=== PATIENT | male | born 1965 | race Caucasian/White ===

== ENCOUNTER 2016-11-18 08:25 | Outpatient (CLI) | payer OTHER ==
[2016-11-18 14:13] LABS: HEMOGLOBIN A1C 1.04 g/dL
[2016-11-18 14:29] LABS: CHOL/HDL RATIO 2.6 (<5.0); CHOLESTEROL 179 mg/dL; HDL CHOLESTEROL 69 mg/dL; LDL/HDL RATIO 1.5 (<3.6); TRIGLYCERIDES 41 mg/dL; VLDL CHOLESTEROL 8 mg/dL
== END 2016-11-18 08:26 | disposition home or self-care (01) ==
LOC: LAB.N 08:25
PROVIDERS: ATTEND Nurse Practitioner Primary Care
DX: E78.5 Hyperlipidemia, unspecified (principal); E11.9 Type 2 diabetes mellitus without complications; E55.9 Vitamin D deficiency, unspecified; Z79.899 Other long term (current) drug therapy
CPT/HCPCS: 36415; 80061; 82306; 83036; 84450; 84460

== ENCOUNTER 2016-11-24 22:09 | Outpatient (CLI) | payer OTHER | END 2016-11-24 22:10 | disposition EMS.NT | DX: R40.20 Unspecified coma (principal); E16.2 Hypoglycemia, unspecified ==

== ENCOUNTER 2017-04-10 08:49 | Outpatient (CLI) | payer OTHER | END 2017-04-10 08:50 | disposition home or self-care (01) | LOC: LAB.N 08:49 | PROVIDERS: ATTEND Nurse Practitioner Primary Care | DX: R53.83 Other fatigue (principal) | CPT/HCPCS: 36415; 81599; 84270; 84402; 84403 ==

== ENCOUNTER 2018-01-31 11:45 | Outpatient (CLI) | payer OTHER | END 2018-01-31 11:46 | disposition home or self-care (01) | LOC: LAB.R 11:45 | PROVIDERS: ATTEND Nurse Practitioner Primary Care | DX: D75.89 Other specified diseases of blood and blood-forming organs (principal) | CPT/HCPCS: 82607; 82746 ==

== ENCOUNTER 2018-01-31 11:51 | Outpatient (CLI) | payer OTHER ==
--- NOTE | 2018-01-31 12:16 | XRAY Report ---
Procedure Date: 01/31/2018 Accession Number: [id number] / [id number] Procedure: XR - Hip w/Pelvis 2-3V LT CPT Code: FULL RESULT: EXAM: Hip w/Pelvis 2-3V LT DATE: 01/31/2018 12:09 PM CLINICAL HISTORY: L HIP PX COMPARISON: None. TECHNIQUE: 1 view of the pelvis and 1 view of the hip. FINDINGS: Bones: Normal. No fracture or bone lesion. Joints: There is narrowing of the bilateral femoral acetabular joints. The pubis symphysis, and sacroiliac joints are preserved. Soft Tissues: Pelvic calcifications are noted, likely vas deferens. No soft tissue swelling. IMPRESSION: Narrowing of the femoral acetabular joints. RADIA
== END 2018-01-31 11:52 | disposition home or self-care (01) ==
LOC: DI 11:51
PROVIDERS: ATTEND Nurse Practitioner Primary Care
DX: M25.852 Other specified joint disorders, left hip (principal); M25.851 Other specified joint disorders, right hip; D75.89 Other specified diseases of blood and blood-forming organs
CPT/HCPCS: 82607; 82746

== ENCOUNTER 2019-05-02 14:01 | Outpatient (CLI) | payer OTHER | END 2019-05-02 14:02 | disposition critical access hospital (66) | LOC: EMS 14:01 | PROVIDERS: ATTEND Surgery | DX: R41.82 Altered mental status, unspecified (principal); R73.09 Other abnormal glucose; V49.9XXA Car occupant (driver) (passenger) injured in unspecified traffic accident, initial encounter; Y92.410 Unspecified street and highway as the place of occurrence of the external cause | CPT/HCPCS: A0425; A0427 ==

== ENCOUNTER 2019-05-02 14:31 | Emergency (ER) | payer OTHER ==
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
[2019-05-02 16:22] VITALS: BP 158/74
== END 2019-05-02 16:21 | disposition home or self-care (01) ==
LOC: EDUNIT# → ED 14:31
DX: Z04.1 Encounter for examination and observation following transport accident (principal); E10.649 Type 1 diabetes mellitus with hypoglycemia without coma; V58.5XXA Driver of pick-up truck or van injured in noncollision transport accident in traffic accident, initial encounter; Y92.410 Unspecified street and highway as the place of occurrence of the external cause; F17.200 Nicotine dependence, unspecified, uncomplicated
CPT/HCPCS: 99283

== ENCOUNTER 2019-06-17 11:05 | Outpatient (CLI) | payer OTHER ==
[2019-06-17 11:54] LABS: BASOPHILS % (AUTO) 0.7 %; EOSINOPHILS % (AUTO) 0.4 %; HGB - HEMOGLOBIN 13.8 g/dL (14.0-18.0); LYMPHOCYTES # (AUTO) 1.3 10^3/uL (1.5-3.5); LYMPHOCYTES % (AUTO) 28.6 %; MEAN CORPUSCULAR HEMOGLOBIN 35.4 pg (27.0-31.0); MEAN CORPUSCULAR HGB CONC 35.6 g/dL (32.0-36.0); MEAN CORPUSCULAR VOLUME 99.5 fL (80.0-94.0); MEAN PLATELET VOLUME 11.2 fL (7.4-11.4); MONOCYTES # (AUTO) 0.4 10^3/uL (0.0-1.0); MONOCYTES % (AUTO) 7.6 %; NEUTROPHILS # (AUTO) 2.9 10^3/uL (1.5-6.6); NEUTROPHILS % (AUTO) 62.3 %; PLT - PLATELET COUNT 172 10^3/uL (130-450); RED CELL DISTRIBUTION WIDTH 11.9 % (12.0-15.0); WHITE BLOOD COUNT 4.6 x10^3/uL (4.8-10.8)
[2019-06-17 12:15] LABS: ALBUMIN 4.6 g/dL (3.2-5.5); ALBUMIN/GLOBULIN RATIO 1.6 (1.0-2.2); ALKALINE PHOSPHATASE 37 IU/L (42-121); ALT ALANINE AMINOTRANSFERASE 32 IU/L (10-60); AST ASPARTATE AMINOTRANSFERASE 28 IU/L (10-42); BUN - BLOOD UREA NITROGEN 13 mg/dL (6-20); CALCIUM 9.3 mg/dL (8.5-10.3); CARBON DIOXIDE - CO2 28 mmol/L (21-32); CHLORIDE 101 mmol/L (101-111); CHOL/HDL RATIO 2.2 (<5.0); CHOLESTEROL 154 mg/dL; CREATININE 0.8 mg/dL (0.6-1.2); GFR - MDRD 100 (>89); GLUCOSE 205 mg/dL (70-100); HDL CHOLESTEROL 71 mg/dL; SODIUM 138 mmol/L (135-145); TOTAL PROTEIN 7.4 g/dL (6.7-8.2)
[2019-06-17 12:17] LABS: HB2 TOTAL 13.6 g/dL; HEMOGLOBIN A1C 1.17 g/dL
== END 2019-06-17 11:06 | disposition home or self-care (01) ==
LOC: LAB 11:05
PROVIDERS: ATTEND Nurse Practitioner
DX: D75.89 Other specified diseases of blood and blood-forming organs (principal); F10.10 Alcohol abuse, uncomplicated; I10 Essential (primary) hypertension; E55.9 Vitamin D deficiency, unspecified; E78.5 Hyperlipidemia, unspecified; E10.9 Type 1 diabetes mellitus without complications; Z12.5 Encounter for screening for malignant neoplasm of prostate
CPT/HCPCS: 36415; 80053; 80061; 82306; 82607; 83036; 83721; 84153; 84443; 85025

== ENCOUNTER 2019-06-18 08:00 | Outpatient (CLI) | payer OTHER ==
[2019-06-18 15:03] LABS: CREATININE,URINE 50.3 mg/dL; MICROALBUM/CREATININE RATIO,UR 9.9 ug/mg (<30.0); MICROALBUMIN,URINE 0.5 mg/dL (0-300.0)
== END 2019-06-18 23:59 | disposition home or self-care (01) ==
LOC: LAB.R 08:00
PROVIDERS: ATTEND Nurse Practitioner
DX: E10.9 Type 1 diabetes mellitus without complications (principal)
CPT/HCPCS: 82043; 82570

== ENCOUNTER 2019-10-22 08:12 | Outpatient (CLI) | payer OTHER ==
--- NOTE | 2019-10-22 18:49 | MRI Report ---
Reason: RT SHLDR PAIN Procedure Date: 10/22/2019 Accession Number: [id number] / [id number] Procedure: MRI - Shoulder RT W/O CPT Code: Final Report FULL RESULT: EXAM: RIGHT SHOULDER MRI WITHOUT CONTRAST EXAM DATE: 10/22/2019 09:07 AM. CLINICAL HISTORY: Right shoulder pain. Difficulty raising arm overhead. COMPARISON: SHOULDER 3 VIEW RT 09/17/2019 10:14 AM. TECHNIQUE: Multiplanar, multisequence T1-weighted and fluid-sensitive sequences of the shoulder without contrast. Other: None. FINDINGS: Acromioclavicular Region: The acromion is type II. The acromioclavicular joint is unremarkable. The coracoacromial and coracoclavicular ligaments are intact. Small quantity of fluid subacromial subdeltoid bursa. Glenohumeral Region: No subluxation. No effusion or loose bodies. The articular cartilage is unremarkable. The glenohumeral ligaments and joint capsule are unremarkable. Bone Marrow: Focal erosion 5 mm anterior humerus head (see image 13 series 801). Labrum: Mid anterior glenoid labrum nondisplaced tear (image 10 series 401). Musculature/Rotator Cuff: Thickening and intermediate signal of the distal supraspinatus tendon sagittal oblique proton density fat saturation sequence 2.4 cm AP dimension (image 7 series 701). Rotator cuff muscles are negative for edema or atrophy. Subscapularis tendon is negative for fluid signal to suggest tear. At the posterior aspect distal infraspinatus tendon is focal increased signal 8 mm transverse dimension and 1.1 cm AP dimension without corresponding fluid signal on the coronal oblique T2-weighted turbo spin-echo sequence (image 17 series 601). Probable focal tendinitis posterior aspect distal infraspinatus tendon. Biceps Tendon: Intermediate signal proximal intra-articular biceps tendon consistent with a biceps tendinosis. Normal caliber low signal biceps tendon bicipital groove. Biceps daksha is intact. Other: The subcutaneous tissues are unremarkable. IMPRESSION: 1. Negative for complete rotator cuff tear. Small fluid collection subacromial subdeltoid bursa. 3. Focal increased signal posterior aspect distal infraspinatus tendon 1.1 cm AP dimension and 8 mm transverse dimension on the proton density fat saturation sequences which is without corresponding fluid signal on the T2-weighted turbo spin-echo sequence. Probable focal tendinitis with differential considerations to include partial less than 50% undersurface tear. 4. Proximal intra-articular biceps tendinosis. 5. Probable nondisplaced complex tear anterior glenoid labrum. RADIA
== END 2019-10-22 08:13 | disposition home or self-care (01) ==
LOC: DI 08:12
PROVIDERS: ATTEND Orthopaedic Surgery Sports Medicine
DX: M67.921 Unspecified disorder of synovium and tendon, right upper arm (principal)

== ENCOUNTER 2020-01-24 08:29 | Outpatient (CLI) | payer OTHER ==
[2020-01-24 11:56] LABS: CALCIUM 9.2 mg/dL (8.5-10.3)
[2020-01-24 12:14] LABS: HB2 TOTAL 14.2 g/dL; HEMOGLOBIN A1C 0.82 g/dL; HEMOGLOBIN A1C % 7.4 % (4.6-6.2)
== END 2020-01-24 23:59 | disposition home or self-care (01) ==
LOC: LAB.WCP 08:29
PROVIDERS: ATTEND Nurse Practitioner
DX: E10.9 Type 1 diabetes mellitus without complications (principal)
CPT/HCPCS: 36415; 80048; 82043; 83036

== ENCOUNTER 2020-03-28 07:56 | Outpatient (CLI) | payer OTHER | END 2020-03-28 07:57 | disposition EMS.NT | LOC: EMS 07:56 | PROVIDERS: ATTEND Surgery | DX: R41.0 Disorientation, unspecified (principal); R46.89 Other symptoms and signs involving appearance and behavior ==

== ENCOUNTER 2020-05-29 22:18 | Outpatient (CLI) | payer OTHER | END 2020-05-29 22:19 | disposition EMS.NT | LOC: EMS 22:18 | PROVIDERS: ATTEND Surgery | DX: R41.82 Altered mental status, unspecified (principal) ==

== ENCOUNTER 2020-06-10 18:39 | Outpatient (CLI) | payer OTHER | END 2020-06-10 18:40 | disposition EMS.NT | LOC: EMS 18:39 | PROVIDERS: ATTEND Surgery | DX: E10.649 Type 1 diabetes mellitus with hypoglycemia without coma (principal); Z79.4 Long term (current) use of insulin ==

== ENCOUNTER 2020-10-02 08:00 | Outpatient (CLI) | payer OTHER ==
[2020-10-02 12:25] LABS: BASOPHILS # (AUTO) 0.1 10^3/uL (0.0-0.1); BASOPHILS % (AUTO) 1.2 %; EOSINOPHILS # (AUTO) 0.1 10^3/uL (0.0-0.7); EOSINOPHILS % (AUTO) 2.1 %; HCT - HEMATOCRIT 42.9 % (42.0-52.0); HGB - HEMOGLOBIN 14.6 g/dL (14.0-18.0); LYMPHOCYTES # (AUTO) 2.1 10^3/uL (1.5-3.5); LYMPHOCYTES % (AUTO) 42.7 %; MEAN CORPUSCULAR HEMOGLOBIN 34.8 pg (27.0-31.0); MEAN CORPUSCULAR VOLUME 102.1 fL (80.0-94.0); MEAN PLATELET VOLUME 11.7 fL (7.4-11.4); MONOCYTES # (AUTO) 0.5 10^3/uL (0.0-1.0); MONOCYTES % (AUTO) 10.5 %; NEUTROPHILS # (AUTO) 2.1 10^3/uL (1.5-6.6); NEUTROPHILS % (AUTO) 43.3 %; PLT - PLATELET COUNT 184 10^3/uL (130-450); RED CELL DISTRIBUTION WIDTH 12.1 % (12.0-15.0); WHITE BLOOD COUNT 4.9 x10^3/uL (4.8-10.8)
[2020-10-02 12:40] LABS: ALBUMIN 4.8 g/dL (3.2-5.5); ALBUMIN/GLOBULIN RATIO 1.7 (1.0-2.2); ALKALINE PHOSPHATASE 35 IU/L (42-121); ALT ALANINE AMINOTRANSFERASE 29 IU/L (10-60); AST ASPARTATE AMINOTRANSFERASE 24 IU/L (10-42); BILIRUBIN,TOTAL 0.8 mg/dL (0.2-1.0); BUN - BLOOD UREA NITROGEN 17 mg/dL (6-20); CALCIUM 9.9 mg/dL (8.5-10.3); CARBON DIOXIDE - CO2 30 mmol/L (21-32); CHLORIDE 102 mmol/L (101-111); CHOL/HDL RATIO 2.2 (<5.0); CHOLESTEROL 196 mg/dL; GFR - MDRD 77 (>89); GLUCOSE 147 mg/dL (70-100); HDL CHOLESTEROL 91 mg/dL; LDL CHOLESTEROL,CALCULATED 93 mg/dL; SODIUM 140 mmol/L (135-145); TOTAL PROTEIN 7.6 g/dL (6.7-8.2); TRIGLYCERIDES 58 mg/dL; VLDL CHOLESTEROL 12 mg/dL
[2020-10-02 12:46] LABS: CREATININE,URINE 200.9 mg/dL; ESTIMATED AVERAGE GLUCOSE 183 mg/dL (70-100); MICROALBUM/CREATININE RATIO,UR 23.9 ug/mg (<30.0); MICROALBUMIN,URINE 4.8 mg/dL (0-300.0); THYROID STIMULATING HORMONE 1.82 uIU/mL (0.34-5.60)
== END 2020-10-02 23:59 | disposition home or self-care (01) ==
LOC: LAB.WCP 08:00
PROVIDERS: ATTEND Family Medicine
DX: I10 Essential (primary) hypertension (principal); E10.319 Type 1 diabetes mellitus with unspecified diabetic retinopathy without macular edema; E78.5 Hyperlipidemia, unspecified
CPT/HCPCS: 36415; 80053; 80061; 82043; 82570; 83036; 83721; 84153; 84443; 85025

== ENCOUNTER 2021-01-04 08:00 | Outpatient (CLI) | payer OTHER ==
[2021-01-04 13:05] LABS: CREATININE,URINE 79.6 mg/dL; MICROALBUM/CREATININE RATIO,UR 8.8 ug/mg (<30.0); MICROALBUMIN,URINE 0.7 mg/dL (0-300.0)
[2021-01-04 13:48] LABS: CREATININE 1.4 mg/dL (0.6-1.2); POTASSIUM 5.4 mmol/L (3.5-5.0)
[2021-01-04 14:01] LABS: ESTIMATED AVERAGE GLUCOSE 206 mg/dL (70-100); HEMOGLOBIN A1c% 8.8 % (4.27-6.07)
== END 2021-01-04 23:59 | disposition home or self-care (01) ==
LOC: LAB.WCP 08:00
PROVIDERS: ATTEND Family Medicine
DX: E10.9 Type 1 diabetes mellitus without complications (principal); E87.5 Hyperkalemia
CPT/HCPCS: 36415; 80048; 82043; 82570; 83036

== ENCOUNTER 2023-07-10 21:51 | Outpatient (CLI) | payer OTHER | END 2023-07-10 21:52 | disposition EMS.NT | LOC: EMS 21:51 | DX: E10.649 Type 1 diabetes mellitus with hypoglycemia without coma (principal) ==

== ENCOUNTER 2023-11-30 06:25 | Day surgery (SDC) | payer OTHER ==
[2023-11-30] MEDS: LACTATED RINGERS 1,000 ML IV ONE ×2 (06:28→07:59)
[2023-11-30] MEDS ORDERED: LIDOCAINE-MPF 2% 5 ML VIAL ONE (07:00)
[2023-11-30] MEDS ORDERED: PROPOFOL 500 MG/50 ML 500 MG/50 ML VIAL ONE (07:00)
--- NOTE | 2023-11-30 07:14 | ANESTHESIA ---
Pre-Anesthesia VS, & Labs - Diagnosis SCREENING COLONOSCOPY - Procedure COLONOSCOPY Vital Signs: Temp Pulse Resp BP Pulse Ox O2 Flow Rate 36 C L 64 16 170/74 H 100 11/30/23 06:32 11/30/23 06:32 11/30/23 06:32 11/30/23 06:32 11/30/23 06:32 Height: 6 ft Weight (kg): 77.7 kg Body Mass Index: 23.2 BMI Classification: Normal - NPO Last Fluid Intake: 0500 Last Food Intake: >8HR - Lab Results Current Lab Results: Laboratory Tests 11/30/23 06:49: POC Whole Bld Glucose 205 H Home Medications and Allergies Home Medications: Ambulatory Orders Insulin Degludec [Tresiba] 12 - 16 units SUBQ DAILY 11/29/23 hydroCHLOROthiazide [Hydrodiuril] 1 tab PO DAILY 11/29/23 Atorvastatin Calcium 40 mg PO QPM 11/06/20 Insulin Lispro [Humalog Kwikpen U-100] 15 - 20 unit SUBQ QDDINNER 11/06/20 Lisinopril [Zestril] 20 mg PO DAILY 11/06/20 Insulin Degludec [Tresiba] 12 - 16 units SUBQ DAILY 11/29/23 hydroCHLOROthiazide [Hydrodiuril] 1 tab PO DAILY 11/29/23 Allergies/Adverse Reactions: Allergies Allergy/AdvReac Type Severity Reaction Status Date / Time No Known Drug Allergies Allergy Verified 11/29/23 12:41 Anes History & Medical History - Anesthetic History Anesthesia Complications: reports: No previous complications Family history of Anesthesia Complications: Denies - Medical History Cardiovascular: reports: Hypertension, High cholesterol Pulmonary: reports: None Gastrointestinal: reports: None Urinary: reports: None Musculoskeletal: reports: None Endocrine/Autoimmune: reports: Type 1 diabetes Skin: reports: None Smoking Status: Current every day smoker Psychosocial: reports: Alcohol - Surgical History Eyes Ears Nose Throat (EENT): reports: Cataracts Orthopedic: reports: Arthroscopic surgery Exam General: Alert Dental: WNL Mouth Openin Fingerbreadth Neck Mobility: Reduced Mallampati classification: II Thyromental Distance: 4-6 cm Respiratory: Lungs clear Cardiovascular: Regular rate Plan Anesthesia Type: Total IV Consent for Procedure(s) Verified and Reviewed: Yes Code Status: Attempt Resuscitation ASA classification: 2-Mild systemic disease Is this case an emergency?: No
[2023-11-30 08:20] VITALS: BP 121/70; O2SAT 100
--- NOTE | 2023-11-30 14:47 | ANESTHESIA POST OP EVALUATION ---
Anesthesia Post Eval - Post Anesthesia Eval Vitals: Last Vital Signs Temp 36.4 C L 11/30/23 07:59 Pulse 62 11/30/23 08:11 Resp 15 11/30/23 08:11 BP 121/70 11/30/23 08:11 Pulse Ox 100 11/30/23 08:11 O2 Flow Rate CV Function Including HR & BP: Stable Pain Control: Satisfactory Nausea & Vomiting: Negative Mental Status: Baseline Respiratory Status: Airway Patent Hydration Status: Satisfactory Anesthesia Complications: None
== END 2023-11-30 06:26 | disposition home or self-care (01) ==
LOC: SDS 06:25
PROVIDERS: ATTEND Surgery
PROC: 0DBL8ZZ Excision of Transverse Colon, Via Natural or Artificial Opening Endoscopic (ICD-10-PCS; principal; 2023-11-30 07:30)
DX: Z12.11 Encounter for screening for malignant neoplasm of colon (principal); D12.3 Benign neoplasm of transverse colon; Z79.4 Long term (current) use of insulin; E10.9 Type 1 diabetes mellitus without complications; Z80.0 Family history of malignant neoplasm of digestive organs; I10 Essential (primary) hypertension; F17.200 Nicotine dependence, unspecified, uncomplicated
CPT/HCPCS: 45380; J7120

== ENCOUNTER 2023-12-22 22:28 | Outpatient (CLI) | payer OTHER | END 2023-12-22 22:29 | disposition EMS.NT | LOC: EMS 22:28 | DX: E11.649 Type 2 diabetes mellitus with hypoglycemia without coma (principal) ==